=== PATIENT | female | born 1990 | race Caucasian/White ===

== ENCOUNTER 2018-06-12 08:57 | Day surgery (SDC) | payer MEDICAID ==
[2018-06-08 15:11] LABS: BASOPHILS % (AUTO) 0.1 % (0-1); EOSINOPHILS # (AUTO) 0.3 X10'3 (0-0.9); EOSINOPHILS % (AUTO) 3.1 % (0-6); LYMPHOCYTES # (AUTO) 2.4 X10'3 (1.1-4.8); LYMPHOCYTES % (AUTO) 21.1 % (21-51); MEAN CORPUSCULAR HGB CONC 33.3 % (33.0-36.5); MONOCYTES # (AUTO) 0.6 X10'3 (0-0.9); MONOCYTES % (AUTO) 5.1 % (2-12); NEUTROPHILS % (AUTO) 70.6 % (42-75); PRE OP HEMATOCRIT 42.5 % (35.0-45.0); PRE OP HEMOGLOBIN 14.2 g/dL (12.0-16.0); PRE OP PLATELET COUNT 346 X10'3 (140-440); RED BLOOD COUNT 4.72 X10'6 (4.20-5.60)
[2018-06-08 15:40] LABS: ALBUMIN 3.8 G/DL (3.4-5.0); ALKALINE PHOSPHATASE 48 IU/L (46-116); BLOOD UREA NITROGEN 6 MG/DL (7-18); BUN/CREATININE RATIO 8.7 (6.6-38.0); CALCIUM 8.9 MG/DL (8.5-10.1); CHLORIDE 107 MMOL/L (99-107); CREATININE 0.69 MG/DL (0.40-0.90); PRE OP ALT 25 U/L (30-65); PRE OP ANION GAP 10 (8-16); PRE OP AST 15 U/L (10-37); PRE OP BILIRUB, TOTAL 0.4 MG/DL (0.0-1.0); PRE OP GLUCOSE 86 MG/DL (70-104); PRE OP POTASSIUM 3.7 MMOL/L (3.4-5.1); PRE OP SODIUM 142 MMOL/L (135-145); TOTAL CARBON DIOXIDE 25.3 MMOL/L (24-32); TOTAL PROTEIN 7.5 G/DL (6.4-8.2); eGFR > 90 ML/MIN
[2018-06-08 15:48] LABS: HCG SERUM QL NEGATIVE
[~2018-06-12] VITALS: Ht 157.5 cm; Wt 87.2 kg
[2018-06-12] VITALS (14 sets, daily range): BP systolic 101–129; BP diastolic 46–75
[~2018-06-12 08:57] MED LIST: CLON-527 PO; DOCUMENT DATE & TIME OF BETA-BLOCKER PO ONE; FAMO40TA7 PO; GABA-530 PO; IVAB5TAB PO; METO50TA7 PO; QUET-1 PO; famotidine 20mg tablet PO ONE; levoFLOXACIN-Levaquin 500mg/D5 100 ML IV ONE; ringers solution, lacted 1,000 ML IV SCH
[2018-06-12] MEDS ORDERED: ringers solution, lacted 1,000 ML IV SCH (10:37)
[2018-06-12] MEDS ORDERED: proCHLORperazine 10 MG/2 ml inj IV PRN (10:40)
[2018-06-12] MEDS ORDERED: ondansetron/PF 4mg/2ml inj IV PRN (10:40)
[2018-06-12] MEDS ORDERED: meperidine/PF 25mg/ml syringe IV PRN ×2 (10:40)
[2018-06-12] MEDS ORDERED: morphine 4 MG/ML inj SYRINge IV PRN ×2 (10:40)
[2018-06-12] MEDS ORDERED: midazolam 2 mg/2 ml injection ONE (10:43)
[2018-06-12] MEDS ORDERED: fentaNYL/PF 50MCG/1 ML 2ML syringe ONE ×2 (10:43→11:58)
[2018-06-12] MEDS ORDERED: sevoflurane 250ml liquid IH ONE (11:02)
[2018-06-12] MEDS ORDERED: BUPIVAcaine/PF 2.5mg/ml (0.25%) 10ml vial ONE ×2 (11:05→11:57)
[2018-06-12] MEDS ORDERED: epiNEPHrine 1 mg/ml inj ONE (11:05)
[2018-06-12] MEDS ORDERED: glycopyrrolate 0.2mg/ml inj ONE (11:42)
[2018-06-12] MEDS ORDERED: propofol inj 20 ML IV ONE (11:42)
[2018-06-12] MEDS ORDERED: neostigmine methylsulfate 1 MG/ML 10ml vial ONE (11:42)
[2018-06-12] MEDS ORDERED: dexamethasone sod phosphate 4mg/ml inj. ONE (11:42)
[2018-06-12] MEDS ORDERED: ondansetron/PF 4mg/2ml inj ONE (11:42)
[2018-06-12] MEDS ORDERED: LIDOcaine 2% (20mg/ml) 5ml vial ONE (11:42)
[2018-06-12] MEDS ORDERED: rocuronium 10mg/ml inj IV ONE (11:42)
[2018-06-12] MEDS: meperidine/PF 25mg/ml syringe IV PRN ×3 (12:30→13:03)
== END 2018-06-12 14:13 | disposition home or self-care (01) ==
LOC: PAS 08:57
PROVIDERS: ATTEND Obstetrics & Gynecology
DX: Z30.2 Encounter for sterilization (principal); N73.6 Female pelvic peritoneal adhesions (postinfective); F17.210 Nicotine dependence, cigarettes, uncomplicated; I49.8 Other specified cardiac arrhythmias; M19.90 Unspecified osteoarthritis, unspecified site; F41.8 Other specified anxiety disorders; Z86.79 Personal history of other diseases of the circulatory system; Z88.0 Allergy status to penicillin; Z87.442 Personal history of urinary calculi; Z79.891 Long term (current) use of opiate analgesic; Z90.49 Acquired absence of other specified parts of digestive tract; Z90.89 Acquired absence of other organs; Z98.890 Other specified postprocedural states; Z79.899 Other long term (current) drug therapy; Z88.8 Allergy status to other drugs, medicaments and biological substances
CPT/HCPCS: 36415; 58670; 80053; 84703; 85025; 93005; A6258; A6402; J1100; J1956; J2001; J2175; J2250; J2270; J2704; J2710; J3010; J3490; A7000; J0171; J2405; J7120